=== PATIENT | male | born 1945 | race Caucasian/White ===

== ENCOUNTER 2017-02-24 08:51 | Emergency (ER) | payer OTHER ==
[~2017-02-24] VITALS: Ht 177.8 cm; Wt 100.0 kg
[~2017-02-24 08:51] MED LIST: ACETAMINOPHEN500 M6 PO; AMIODARONE HCL200 MG PO; COLACE100 MG PO; DIGOXIN125 MCG PO; FOLIC ACID1 MG PO; HYDROCODON-ACE1 EAC7 PO; LANSOPRAZOLE30 MG PO; LOSARTAN POTASS50 MG PO; METOPROLOL TAR100 MG PO; PERCOCET 5/31 TABLET PO; PRAVASTATIN SOD40 MG; PRAVASTATIN SOD40 MG PO; PREVACID30 MG PO; PROAIR HFA8.5 GM IH; PROZAC40 MG PO; TRAMADOL HCL50 MG PO; TYLENOL EXTRA500 MG PO; XARELTO15 MG PO; XARELTO20 MG PO
[2017-02-24 09:35] LABS: EOSINOPHIL (%) 0.9 % (0-5); HEMATOCRIT 45.8 % (38.0-50.0); IMMATURE GRANULOCYTE (%) 0.4 % (0.0-0.7); INSTRUMENT ABS NEUTROPHIL CT 3.5 K/uL; LYMPHOCYTE COUNT 0.6 K/uL (1.0-2.8); MCH 32.4 PG (29.0-34.0); MCHC 34.5 G/DL (30.0-36.0); MEAN PLAT.VOLUME 8.5 uM^3 (9.0-12.4); MONOCYTE (%) 9.1 % (3-12); MONOCYTE COUNT 0.4 K/uL (0-0.8); NEUTROPHIL (%) 75.6 % (45-76); NEUTROPHIL COUNT 3.5 K/uL (1.8-6.4); PLATELET COUNT 155 K/uL (156-360); RBC DIS.WIDTH-CV 12.1 % (11.8-14.6); RBC DIS.WIDTH-SD 42.2 % (39-53); RED BLOOD COUNT 4.87 M/uL (4.00-5.50); WHITE BLOOD COUNT 4.6 K/uL (4.1-10.2)
[2017-02-24 09:50] LABS: CHLORIDE 101 mEq/L (99-109); POTASSIUM 4.3 mEq/L (3.7-5.4); SODIUM 131 mEq/L (136-147)
[2017-02-24 09:53] LABS: GLUCOSE 118 mg/dL (70-99)
[2017-02-24 09:54] LABS: ANION GAP 11 MEQ/L (2-14)
[2017-02-24 09:56] LABS: ALKALINE PHOSPHATASE 56 IU/L (3-129); GFR ESTIMATE (CALCULATED) 58 mL/min/
[2017-02-24 09:57] LABS: UREA NITROGEN (BUN) 24 mg/dL (9-23)
[2017-02-24 10:00] LABS: LIPASE 10 U/L (1.0-51.0)
[2017-02-24] MEDS ORDERED: PROMETHAZINE HC25 M1 PO (12:46)
[2017-02-24] MEDS ORDERED: BENTYL20 MG PO (12:46)
[2017-02-24 13:19] VITALS: BP 121/94
== END 2017-02-24 13:05 | disposition home or self-care (01) ==
LOC: EME 08:51
PROVIDERS: Emergency Medicine
DX: R19.7 Diarrhea, unspecified (principal); R10.9 Unspecified abdominal pain; I10 Essential (primary) hypertension; I48.91 Unspecified atrial fibrillation; I25.2 Old myocardial infarction; Z79.01 Long term (current) use of anticoagulants; Z86.73 Personal history of transient ischemic attack (TIA), and cerebral infarction without residual deficits; Z96.612 Presence of left artificial shoulder joint; Z96.653 Presence of artificial knee joint, bilateral; Z87.891 Personal history of nicotine dependence
CPT/HCPCS: 74022; 74177; 80053; 83690; 85025; 99281; 99285; J1885; J2765; J7030

== ENCOUNTER → 2017-11-17 | Day surgery (SDC) | payer OTHER ==
[~2017-11-17] VITALS: Ht 177.8 cm; Wt 103.4 kg
[~2017-11-17] MED LIST changes: +ACID REDUCER PO; +BENTYL20 MG PO; +COZAAR50 MG PO; +PROMETHAZINE HC25 M1 PO; +ZANTAC150 MG PO
== END | disposition home or self-care (01) ==
LOC: CATH 12:12
DX: I48.91 Unspecified atrial fibrillation (principal); Z53.09 Procedure and treatment not carried out because of other contraindication
CPT/HCPCS: 93005

== ENCOUNTER 2017-11-20 08:21 | Inpatient (IN) | payer OTHER ==
[~2017-11-20] VITALS: Ht 177.8 cm; Wt 118.0 kg
[2017-11-20 09:22] LABS: HEMATOCRIT 44.9 % (38.0-50.0); HEMOGLOBIN 15.4 G/DL (12.5-16.6); MCH 32.8 PG (29.0-34.0); MCHC 34.3 G/DL (30.0-36.0); MCV 95.7 FL (86-99); PLATELET COUNT 146 K/uL (156-360); RBC DIS.WIDTH-SD 42.3 % (39-53); RED BLOOD COUNT 4.69 M/uL (4.00-5.50)
[2017-11-20 09:31] LABS: CHLORIDE 104 mEq/L (99-109); POTASSIUM 4.1 mEq/L (3.7-5.4); SODIUM 133 mEq/L (136-147)
[2017-11-20 09:33] LABS: GLUCOSE 119 mg/dL (70-99); TOTAL PROTEIN 6.6 g/dL (6.4-8.3)
[2017-11-20 09:35] LABS: TOTAL BILIRUBIN 0.9 mg/dL (0.0-1.0)
[2017-11-20 09:36] LABS: ALKALINE PHOSPHATASE 70 IU/L (3-129)
[2017-11-20 09:37] LABS: CREATININE 1.5 mg/dL (0.6-1.3); GFR ESTIMATE (CALCULATED) 49 mL/min/ (58.99-99999)
[2017-11-20 09:38] LABS: AST (GOT) 31 IU/L (2-34); UREA NITROGEN (BUN) 21 mg/dL (9-23)
[2017-11-20 09:40] LABS: ALT (GPT) 34 IU/L (3-49)
[2017-11-20 10:04] LABS: C-REACTIVE PROTEIN 1.2 MG/L (0-10)
[2017-11-20 12:04] LABS: APPEARANCE CLEAR ((CLEAR)); BILIRUBIN NEGATIVE; BLOOD NEGATIVE; COLOR YELLOW ((YELLOW)); GLUCOSE (STRIP) NEGATIVE; KETONES NEGATIVE; LEUKOCYTES NEGATIVE; NITRITE NEGATIVE; PROTEIN (STRIP) NEGATIVE; SPECIFIC GRAVITY 1.043 (1.000-1.030); UCUL ADDED? NO; UROBILINOGEN 0.2 MG/DL (0.2-1.0)
[2017-11-20] MEDS ORDERED: TYLENOL EXTRA500 MG PO (13:00)
[2017-11-20 13:52] VITALS: BP 145/88
[2017-11-20 16:26] VITALS: BP 121/82
[2017-11-20 17:56] LABS: C DIFF TOXIN NEGATIVE (NEGATIVE)
[2017-11-20 19:00] VITALS: BP 112/78
[2017-11-21 00:12] VITALS: BP 128/94
[2017-11-21 04:11] VITALS: BP 112/78
[2017-11-21 05:48] LABS: HEMATOCRIT 40.4 % (38.0-50.0); HEMOGLOBIN 13.5 G/DL (12.5-16.6); MCH 32.4 PG (29.0-34.0); MCHC 33.4 G/DL (30.0-36.0); MCV 96.9 FL (86-99); PLATELET COUNT 127 K/uL (156-360); RBC DIS.WIDTH-SD 43.1 % (39-53); RED BLOOD COUNT 4.17 M/uL (4.00-5.50); WHITE BLOOD COUNT 4.5 K/uL (4.1-10.2)
[2017-11-21 06:17] LABS: CHLORIDE 106 MEQ/L (99-109); CREATININE 1.2 MG/DL (0.6-1.3); GFR ESTIMATE (CALCULATED) > 59 mL/min/ (58.99-99999); GLUCOSE 100 mg/dL (70-99); POTASSIUM 4.3 MEQ/L (3.7-5.4); SODIUM 136 MEQ/L (136-147); UREA NITROGEN (BUN) 14 mg/dL (9-23)
[2017-11-21 07:15] VITALS: BP 124/87
[2017-11-21 11:50] VITALS: BP 132/90
[2017-11-21 15:03] VITALS: BP 122/79
[2017-11-21 19:00] VITALS: BP 129/92
[2017-11-22 00:11] VITALS: BP 100/66
[2017-11-22 05:15] LABS: BASOPHIL (%) 0.5 % (0-1); EOSINOPHIL (%) 1.5 % (0-5); EOSINOPHIL COUNT 0.1 K/uL (0-0.3); HEMATOCRIT 41.4 % (38.0-50.0); HEMOGLOBIN 14.1 G/DL (12.5-16.6); IMMATURE GRANULOCYTE (%) 0.7 % (0.0-0.7); LYMPHOCYTE (%) 13.7 % (15-42); LYMPHOCYTE COUNT 0.6 K/uL (1.0-2.8); MCH 32.9 PG (29.0-34.0); MCHC 34.1 G/DL (30.0-36.0); MCV 96.5 FL (86-99); MONOCYTE COUNT 0.5 K/uL (0-0.8); NEUTROPHIL (%) 71.6 % (45-76); NEUTROPHIL COUNT 2.9 K/uL (1.8-6.4); PLATELET COUNT 126 K/uL (156-360); RBC DIS.WIDTH-CV 12.1 % (11.8-14.6); RBC DIS.WIDTH-SD 42.8 % (39-53); RED BLOOD COUNT 4.29 M/uL (4.00-5.50); WHITE BLOOD COUNT 4.1 K/uL (4.1-10.2)
[2017-11-22 05:44] LABS: CHLORIDE 105 MEQ/L (99-109); CREATININE 1.2 MG/DL (0.6-1.3); GFR ESTIMATE (CALCULATED) > 59 mL/min/ (58.99-99999); GLUCOSE 114 mg/dL (70-99); SODIUM 136 MEQ/L (136-147); UREA NITROGEN (BUN) 9 mg/dL (9-23)
[2017-11-22 05:45] LABS: POTASSIUM 3.4 MEQ/L (3.7-5.4)
[2017-11-22 08:52] VITALS: BP 140/92
[2017-11-22 11:54] VITALS: BP 145/102
[2017-11-22 16:00] VITALS: BP 141/94
[2017-11-22 20:00] VITALS: BP 134/103
[2017-11-23] VITALS (7 sets, daily range): BP systolic 107–146; BP diastolic 70–103
[2017-11-23 07:53] LABS: HEMATOCRIT 36.5 % (38.0-50.0); HEMOGLOBIN 12.7 G/DL (12.5-16.6); MCH 33.2 PG (29.0-34.0); MCHC 34.8 G/DL (30.0-36.0); MCV 95.3 FL (86-99); PLATELET COUNT 111 K/uL (156-360); RBC DIS.WIDTH-CV 12.2 % (11.8-14.6); RBC DIS.WIDTH-SD 42.3 % (39-53); RED BLOOD COUNT 3.83 M/uL (4.00-5.50); WHITE BLOOD COUNT 3.4 K/uL (4.1-10.2)
[2017-11-23 08:20] LABS: CHLORIDE 105 MEQ/L (99-109); CREATININE 1.1 MG/DL (0.6-1.3); GFR ESTIMATE (CALCULATED) > 59 mL/min/ (58.99-99999); GLUCOSE 96 mg/dL (70-99); SODIUM 135 MEQ/L (136-147); UREA NITROGEN (BUN) 8 mg/dL (9-23)
[2017-11-23 08:22] LABS: POTASSIUM 4.1 MEQ/L (3.7-5.4)
[2017-11-24 06:11] LABS: BASOPHIL (%) 0.4 % (0-1); EOSINOPHIL (%) 1.5 % (0-5); EOSINOPHIL COUNT 0.1 K/uL (0-0.3); HEMOGLOBIN 13.4 G/DL (12.5-16.6); IMMATURE GRANULOCYTE (%) 0.9 % (0.0-0.7); LYMPHOCYTE (%) 11.1 % (15-42); LYMPHOCYTE COUNT 0.5 K/uL (1.0-2.8); MCH 32.4 PG (29.0-34.0); MCHC 34.4 G/DL (30.0-36.0); MCV 94.4 FL (86-99); MONOCYTE COUNT 0.6 K/uL (0-0.8); NEUTROPHIL (%) 74.1 % (45-76); NEUTROPHIL COUNT 3.4 K/uL (1.8-6.4); PLATELET COUNT 138 K/uL (156-360); RBC DIS.WIDTH-CV 11.9 % (11.8-14.6); RBC DIS.WIDTH-SD 41.1 % (39-53); RED BLOOD COUNT 4.13 M/uL (4.00-5.50); WHITE BLOOD COUNT 4.6 K/uL (4.1-10.2)
[2017-11-24 06:19] LABS: INTER. NORMALIZED RATIO 1.3
[2017-11-24 06:21] LABS: PTT 26.4 SEC (25-37)
[2017-11-24 06:31] LABS: CHLORIDE 102 MEQ/L (99-109); CREATININE 1.1 MG/DL (0.6-1.3); GFR ESTIMATE (CALCULATED) > 59 mL/min/ (58.99-99999); GLUCOSE 99 mg/dL (70-99); POTASSIUM 3.4 MEQ/L (3.7-5.4); SODIUM 132 MEQ/L (136-147); UREA NITROGEN (BUN) 7 mg/dL (9-23)
[2017-11-24 07:44] VITALS: BP 158/102
[2017-11-24 11:16] VITALS: BP 156/105
[2017-11-24 15:19] VITALS: BP 134/89
[2017-11-24 20:00] VITALS: BP 122/72
[2017-11-24 23:28] VITALS: BP 119/80
[2017-11-25 05:50] LABS: BASOPHIL (%) 0.3 % (0-1); EOSINOPHIL (%) 1.4 % (0-5); EOSINOPHIL COUNT 0.1 K/uL (0-0.3); HEMATOCRIT 34.5 % (38.0-50.0); HEMOGLOBIN 12.1 G/DL (12.5-16.6); IMMATURE GRANULOCYTE (%) 0.6 % (0.0-0.7); LYMPHOCYTE (%) 13.5 % (15-42); LYMPHOCYTE COUNT 0.5 K/uL (1.0-2.8); MCH 33.2 PG (29.0-34.0); MCHC 35.1 G/DL (30.0-36.0); MCV 94.5 FL (86-99); MONOCYTE (%) 14.4 % (3-12); MONOCYTE COUNT 0.5 K/uL (0-0.8); NEUTROPHIL (%) 69.8 % (45-76); NEUTROPHIL COUNT 2.5 K/uL (1.8-6.4); PLATELET COUNT 112 K/uL (156-360); RBC DIS.WIDTH-CV 11.9 % (11.8-14.6); RBC DIS.WIDTH-SD 42.1 % (39-53); RED BLOOD COUNT 3.65 M/uL (4.00-5.50); WHITE BLOOD COUNT 3.6 K/uL (4.1-10.2)
[2017-11-25 06:23] LABS: CHLORIDE 104 MEQ/L (99-109); CREATININE 1.1 MG/DL (0.6-1.3); GFR ESTIMATE (CALCULATED) > 59 mL/min/ (58.99-99999); GLUCOSE 98 mg/dL (70-99); SODIUM 132 MEQ/L (136-147); UREA NITROGEN (BUN) 7 mg/dL (9-23)
[2017-11-25 06:26] LABS: POTASSIUM 4.2 MEQ/L (3.7-5.4)
[2017-11-25 07:48] VITALS: BP 164/90
[2017-11-25] MEDS ORDERED: FLORASTOR250 MG PO (09:52)
[2017-11-25] MEDS ORDERED: LOMOTIL TABLET1 EACH PO (09:54)
[2017-11-25] MEDS ORDERED: METRONIDAZOLE500 MG PO (10:44)
[2017-11-25 11:29] VITALS: BP 139/91
== END 2017-11-25 13:23 | disposition home or self-care (01) | DRG 392 ==
LOC: EME 08:21 → 5WEST 12:26 → EDOF 12:26 → ENRESERV 12:27 → 5WEST 13:40
PROVIDERS: Emergency Medicine; Internal Medicine
PROC: 0DBE8ZX Excision of Large Intestine, Via Natural or Artificial Opening Endoscopic, Diagnostic (ICD-10-PCS; principal; 2017-11-24)
DX: R19.7 Diarrhea, unspecified (principal); E86.0 Dehydration; N17.9 Acute kidney failure, unspecified; K64.8 Other hemorrhoids; I48.91 Unspecified atrial fibrillation; F41.9 Anxiety disorder, unspecified; D69.6 Thrombocytopenia, unspecified; Z96.653 Presence of artificial knee joint, bilateral; I10 Essential (primary) hypertension; K21.9 Gastro-esophageal reflux disease without esophagitis; E87.6 Hypokalemia; F32.9 Major depressive disorder, single episode, unspecified; E78.5 Hyperlipidemia, unspecified; G89.29 Other chronic pain; E66.9 Obesity, unspecified; Z96.612 Presence of left artificial shoulder joint; Z87.891 Personal history of nicotine dependence; Z90.79 Acquired absence of other genital organ(s); Z85.46 Personal history of malignant neoplasm of prostate; Z86.73 Personal history of transient ischemic attack (TIA), and cerebral infarction without residual deficits; Z79.01 Long term (current) use of anticoagulants; Z68.37 Body mass index [BMI] 37.0-37.9, adult; R10.9 Unspecified abdominal pain
CPT/HCPCS: 74177; 80048; 80053; 81003; 82272; 83605; 83630; 85025; 85027; 85610; 85730; 86140; 87040; 87177; 87493; 87506; 88305; 93005; 99281; 99285; G0378; J0744; J2405; J3480; J7030; J7040; J7120; S0030

== ENCOUNTER 2018-01-31 11:26 | Emergency (ER) | payer OTHER ==
[~2018-01-31] VITALS: Ht 177.8 cm; Wt 106.3 kg
[~2018-01-31 11:26] MED LIST changes: +FLORASTOR250 MG PO; +LOMOTIL TABLET1 EACH PO; +METRONIDAZOLE500 MG PO
[2018-01-31 12:10] LABS: HEMATOCRIT 43.6 % (38.0-50.0); HEMOGLOBIN 14.9 G/DL (12.5-16.6); MCH 33.2 PG (29.0-34.0); MCHC 34.2 G/DL (30.0-36.0); MCV 97.1 FL (86-99); PLATELET COUNT 141 K/uL (156-360); RBC DIS.WIDTH-CV 12.2 % (11.8-14.6); RBC DIS.WIDTH-SD 43.8 % (39-53); RED BLOOD COUNT 4.49 M/uL (4.00-5.50); WHITE BLOOD COUNT 5.1 K/uL (4.1-10.2)
[2018-01-31 12:18] LABS: INTER. NORMALIZED RATIO 1.8
[2018-01-31 12:19] LABS: CHLORIDE 102 mEq/L (99-109); POTASSIUM 5.1 mEq/L (3.7-5.4); SODIUM 133 mEq/L (136-147)
[2018-01-31 12:21] LABS: GLUCOSE 122 mg/dL (70-99); PTT 32.6 SEC (25-37); TOTAL PROTEIN 6.6 g/dL (6.4-8.3)
[2018-01-31 12:23] LABS: TOTAL BILIRUBIN 0.8 mg/dL (0.0-1.0)
[2018-01-31 12:25] LABS: ALKALINE PHOSPHATASE 79 IU/L (3-129); CREATININE 1.2 mg/dL (0.6-1.3); GFR ESTIMATE (CALCULATED) > 59 mL/min/ (58.99-99999)
[2018-01-31 12:26] LABS: UREA NITROGEN (BUN) 13 mg/dL (9-23)
[2018-01-31 12:27] LABS: AST (GOT) 42 IU/L (2-34)
[2018-01-31 12:28] LABS: ALT (GPT) 47 IU/L (3-49)
[2018-01-31 12:30] LABS: TROP-I INTERPRETATION NEGATIVE; TROPONIN-I 0.01 ng/mL (0.0-0.30)
[2018-01-31 13:27] LABS: APPEARANCE CLOUDY ((CLEAR)); BILIRUBIN NEGATIVE; BLOOD LARGE; COLOR AMBER ((YELLOW)); GLUCOSE (STRIP) NEGATIVE; KETONES NEGATIVE; LEUKOCYTES SMALL; NITRITE NEGATIVE; PROTEIN (STRIP) 100; SPECIFIC GRAVITY 1.024 (1.000-1.030)
[2018-01-31 13:47] LABS: RED BLOOD CELLS 20-30 /HPF (0-5)
[2018-01-31 13:48] LABS: BACTERIA 1+ /HPF; EPITHELIAL CELLS NONE SEEN /HPF; MUCUS NONE SEEN /LPF; UCUL ADDED? YES
[2018-01-31] MEDS ORDERED: LEVAQUIN750 MG PO (14:24)
[2018-01-31 15:15] VITALS: BP 118/95
== END 2018-01-31 15:21 | disposition home or self-care (01) ==
LOC: EME 11:26
PROVIDERS: Emergency Medicine Emergency Medical Services
DX: N39.0 Urinary tract infection, site not specified (principal); R31.9 Hematuria, unspecified; Z85.46 Personal history of malignant neoplasm of prostate; Z90.79 Acquired absence of other genital organ(s); I48.91 Unspecified atrial fibrillation; Z79.01 Long term (current) use of anticoagulants; Z86.73 Personal history of transient ischemic attack (TIA), and cerebral infarction without residual deficits; J44.9 Chronic obstructive pulmonary disease, unspecified; I10 Essential (primary) hypertension; F41.9 Anxiety disorder, unspecified; F32.9 Major depressive disorder, single episode, unspecified; K21.9 Gastro-esophageal reflux disease without esophagitis; Z96.612 Presence of left artificial shoulder joint; Z96.653 Presence of artificial knee joint, bilateral; Z88.0 Allergy status to penicillin; Z87.891 Personal history of nicotine dependence
CPT/HCPCS: 80053; 81003; 84153; 84484; 85027; 85610; 85730; 87077; 87086; 87186; 99281; 99284

== ENCOUNTER → 2018-02-12 | Outpatient (CLI) | payer OTHER ==
[~2018-02-12] MED LIST changes: +LEVAQUIN750 MG PO
== END | disposition home or self-care (01) ==
LOC: RAD 13:19
DX: R58 Hemorrhage, not elsewhere classified (principal); M79.604 Pain in right leg; M79.605 Pain in left leg
CPT/HCPCS: 93970

== ENCOUNTER → 2018-02-21 | Outpatient (CLI) | payer OTHER | END | disposition home or self-care (01) | LOC: RAD 08:53 | DX: I70.203 Unspecified atherosclerosis of native arteries of extremities, bilateral legs (principal); M79.605 Pain in left leg; R58 Hemorrhage, not elsewhere classified | CPT/HCPCS: 93925 ==